=== PATIENT | female | born 1990 | race Caucasian/White ===

== ENCOUNTER 2022-04-01 16:03 | Emergency (ER) | payer SELFPAY ==
[~2022-04-01] VITALS: Ht 160 cm; Wt 74.8 kg
[2022-04-01] MEDS ORDERED: PENI500T PO (16:34)
[2022-04-01] MEDS ORDERED: ACHD5005 PO (16:34)
--- NOTE | 2022-04-01 16:34 | ED EENT ---
History of Present Illness General Chief Complaint: Dental Problems/Pain Stated Complaint: ABCESS TOOTH Source: patient Exam Limitations: no limitations (AMANDA SHEPHERD) History of Present Illness Date Seen by Provider: Apr 01, 2022 Time Seen by Provider: 16:29 Initial Comments Patient is a 31-year-old female who presents ED with dental pain and swelling and redness to the left side of face. Dental pain to her left lower molar that started 4 days ago. Increasing pain to 2 days ago with redness and swelling to left lower jaw. Denies any fever, chills, nausea vomiting, diarrhea. She states she has poor teeth that need dental evaluation. Attempted to see a dentist but was not able to get in. Denies headache, dizziness, nausea, vomiting, diarrhea. (AMANDA SHEPHERD) Allergies and Home Medications Allergies Coded Allergies: cefadroxil (Verified Allergy, Unknown, 04/01/22) clindamycin (Verified Allergy, Unknown, 04/01/22) Patient Home Medication List Home Medication List Reviewed: Yes (AMANDA SHEPHERD) Hydrocodone/Acetaminophen (Hydrocodone-Acetamin 5-325 mg) 5 Mg-325 Mg Tablet, 1 TAB PO Q4H PRN for PAIN-MODERATE (5-7) Prescribed by: TRAV HERNÁNDEZ on 04/01/22 1634 Penicillin V Potassium (Penicillin V Potassium) 500 Mg Tablet, 500 MG PO QID Prescribed by: TRAV HERNÁNDEZ on 04/01/22 1634 Review of Systems Review of Systems Constitutional: No chills, No diaphoresis, No malaise, No weakness Eyes: Denies Drainage, Denies Decreased Acuity Ears: Denies Dizziness, Denies Pain Nose: denies clots, denies congestion Mouth: denies loose teeth; pain, swelling Throat: denies swelling, denies discharge Respiratory: No cough, No dyspnea on exertion Cardiovascular: No chest pain Gastrointestinal: No abdominal pain, No diarrhea, No nausea, No vomiting (AMANDA SHEPHERD) All Other Systems Reviewed Negative Unless Noted: Yes (AMANDA SHEPHERD) Past Xvvuvme-Gdzwyb-Nviwzm Hx Patient Social History Tobacco Use?: Yes Tobacco type used: Cigarettes Smoking Status: Current Everyday Smoker Smokeless Tobacco Frequency: Never a User Use of E-Cig and/or Vaping dev: No Use of E-Cig and/or Vaping Arturo: Never a User Substance use?: No Alcohol Use?: Yes Alcohol Frequency: Once in a while (AMANDA SHEPHERD) Physical Exam Vital Signs Vital Signs - First Documented 04/01/22 04/01/22 16:12 17:20 Temp 37.5 Pulse 105 Resp 17 B/P (MAP) 126/71 (89) Pulse Ox 100 O2 Delivery Room Air (KYMBERLY HILL K DO) Height, Weight, BMI Height: '" Weight: lbs. oz. kg; BMI Method: General Appearance: WD/WN, no apparent distress Eyes: bilateral eye normal inspection, bilateral eye PERRL, bilateral eye EOMI Ears: bilateral ear auricle normal, bilateral ear canal normal, bilateral ear TM normal Mouth/Throat: other (Decay noted to the left lower molar with redness and swelling with a fluctuant mass laterally. 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 Patient tolerated procedure well. 1% localized lidocaine 3 mls was used (AMANDA SHEPHERD) Departure Communication (PCP) Large abscess to the left lower molar. Incision and drainage was performed here successfully. Patient tolerated procedure well. Recommend dental outpatient follow-up in the next 2 to 3 days. Will discharge with penicillin VK. She is allergic to clindamycin. Will discharge with oral pain medication. Area was left open to allow drainage. We will provide 2 x 2's. Discussed with patient increased redness or swelling to the face or size will need to return for incision and drainage. (AMANDA SHEPHERD) Impression Primary Impression: Dental abscess Disposition: 01 HOME, SELF-CARE Condition: Stable Departure-Patient Inst. Decision time for Depature: 16:32 (AMANDA SHEPHERD) Referrals: [facility],LOCAL PHYSICIAN (PCP) Primary Care Physician Patient Instructions: Dental Pain ED Scripts Hydrocodone/Acetaminophen (Hydrocodone-Acetamin 5-325 mg) 5 Mg-325 Mg Tablet 1 TAB PO Q4H PRN for PAIN-MODERATE (5-7), #8 TAB Prov: AMANDA SHEPHERD 04/01/22 Penicillin V Potassium (Penicillin V Potassium) 500 Mg Tablet 500 MG PO QID for 7 Days, #28 TAB Prov: AMANDA SHEPHERD 04/01/22 ATTENDING PHYSICIAN NOTE: I WAS PHYSICALLY PRESENT ER PHYSICIAN, BUT I WAS NOT INVOLVED IN ANY DECISION MAKING OR ANY CARE OF THIS PATIENT, AND I AM NOT COLLABORATING PHYSICIAN. (KYMBERLY HILL DO) AMANDA SHEPHERD Apr 01, 2022 16:34 KYMBERLY HILL DO Apr 02, 2022 20:02
[2022-04-01 17:20] VITALS: BP 134/76
== END 2022-04-01 17:20 | disposition home or self-care (01) ==
LOC: ER 16:06
DX: K04.7 Periapical abscess without sinus (principal); F17.210 Nicotine dependence, cigarettes, uncomplicated; Z88.1 Allergy status to other antibiotic agents
CPT/HCPCS: 99281